=== PATIENT | male | born 1990 | race Caucasian/White ===

== ENCOUNTER 2023-02-14 08:59 | Emergency (ER) | payer MEDICAID, SELFPAY ==
[2023-02-14 09:04] VITALS: BP 151/111; PULSE 90; RESP 18; TEMP 36.8; O2SAT 99; BMI 29.9
--- NOTE | 2023-02-14 09:33 | ED_ITS ---
HPI - General Adult General Chief complaint: General Medical Stated complaint: bite willams ? hives Time Seen by Provider: 02/14/23 09:12 History of Present Illness HPI narrative: 32-year-old male with history of asthma, anxiety, depression presents with 1 week history of insect bites. Reports he went camping with his family 1 week ago and sustained two bites to the posterior calf. Reports that these bites were resolving without issue, but last night he noticed more bites all over his skin, that are painful 10/10, itchy, and draining fluid. Denies any other family members having similar bites. Endorses sweats, chills, headache, wooziness , nausea, vomiting, fatigue, shortness of breath, inability to taste. Denies using any medications for the current complaint. Onset (ago): day(s) Severity: severe Severity scale (1-10): 10 Pain Consistency: constant Associated symptoms: fever/chills, headaches, loss of appetite, nausea/vomiting, rash, shortness of breath and weakness Treatments prior to arrival: none Related Data Previous Rx's Medication Instructions Recorded diphenhydramine HCl 25 mg capsule 25 mg PO TID PRN itching #30 caps 02/14/23 (Benadryl) hydrocortisone 2.5 % topical 1 appl topical BID PRN itching 02/14/23 ointment #28.35 grams Allergies Allergy/AdvReac Type Severity Reaction Status Date / Time No Known Allergies Allergy Unverified 03/02/20 16:25 [facility] Social History Social History Advance Directives: No Advance Directives Information Provided: Yes Physical Exam ED Vital Signs: Vital Signs - 24 hr 02/14/23 09:04 Temperature 98.3 F Pulse Rate 90 Respiratory Rate 18 Blood Pressure 151/111 H Pulse Oximetry 99 Oxygen Delivery Method Room Air BMI result Body Mass Index 29.9 Const General: cooperative, no acute distress and alert Orientation/consciousness: patient oriented x3 Eyes Pupils: Equal, round and reactive pupils present EOM: EOMs intact bilaterally Direct Ophthalmoscopy: normal light reflex Neck Neck: Yes no meningeal signs Resp Effort & Inspection: normal respiratory effort and able to speak in complete sentences Auscultation: clear to auscultation bilaterally Cardio Rate: regular rate Skin Other: Scattered 2-5 mm papules with central punctum on arms, legs, back, chest, neck. Tender but not warm to palpation. Surrounding erythema about 1 cm for some bites. Some open and draining but no purulent fluid. Do not appear infected. No erythema migrans visualized. Neuro General: patient oriented x3 and no meningeal signs Cranial nerves: Yes Equal, round and reactive pupils present Medical Decision Making Medical Decision Making MDM Narrative: 32-year-old male presents with bug bites, that are painful, itchy. Reports systemic symptoms like sweats, chills, nausea, vomiting, shortness of breath. Physical exam reveals various, scatted, red papules that have been deroofed from itching and are oozing clear fluid. No ECM rash. Less likely ticke bourne illness due to multiple sites. Vital signs are within normal limits aside from BP 151/111. Patient appears in no acute distress and speaks in full sentences. Will discharge with prescription for Benadryl and topical hydrocortisone ointment. Informed patient that these medications will help with itchiness and rash should resolve. Differential Diagnosis Differential Diagnoses: The differential diagnosis associated with the presentation includes Mosquito bites, scabies, tick bite, Lyme, RMSF, COVID, influenza, upper respiratory virus External Record Review External record reviewed: Prior outpatient labs Tests considered The following testing was considered but not selected: considered lab workup and tick panel Prescription Management I considered prescription management with: Pain Medication and Antibiotic Critical Care Time Critical Care Time Critical Care Time: No Discharge Plan Discharge Clinical Impression: Bug bites Patient Disposition: Home, Self-Care Instructions: Insect Bite or Sting (ED) Additional Instructions: take the prescribed antihistaine as directed use the ointment as needed for itching use cool compresses or ice if itchy follow up with your doctor as needed If you develop new or worsening symptoms call 911 or come back to the ER for further evaluation. Prescriptions: New diphenhydramine HCl [Benadryl] 25 mg capsule 25 mg PO TID PRN (Reason: itching) Qty: 30 0RF hydrocortisone 2.5 % ointment 1 appl topical BID PRN (Reason: itching) Qty: 28.35 0RF Print Language: [place] Irish
== END 2023-02-14 10:21 | disposition home or self-care (01) ==
PROVIDERS: Emergency Provider Emergency Medicine
DX: L29.9 Pruritus, unspecified (principal); R11.2 Nausea with vomiting, unspecified; R06.02 Shortness of breath
CPT/HCPCS: 99282; 99283

== ENCOUNTER 2024-02-21 05:18 | Emergency (ER) | payer MEDICAID, SELFPAY ==
--- NOTE | ~2024-02-21 | CT_ITS ---
EXAMINATION: CT HEAD WITHOUT CONTRAST CLINICAL INFORMATION: Reason for Exam unresponsive, prob from OD COMPARISON: 05/22/2018 TECHNIQUE: Contiguous axial imaging was performed from the skull base to vertex without intravenous administration of contrast. This CT examination was performed using dose optimization techniques as appropriate, variously including the following: *Automated exposure control *Adjustment of mA and/or kV according to patient size (this includes techniques or standardized protocols for targeted exams where dose is matched to indication/reason for exam; i.e. extremities or head) *Use of iterative reconstruction technique DLP: 611 mGy-cm FINDINGS: There is no evidence of acute intracranial hemorrhage or territorial infarction. No abnormal mass-effect or midline shift is seen. Thompson to white matter differentiation is well preserved. No extra-axial fluid collections are identified. The ventricles are normal in size. There is no abnormal attenuation within the brain parenchyma. The osseous structures and soft tissues are normal. Mucous retention cysts of the bilateral maxillary sinuses. The mastoid air cells are well-aerated. CT/CT head/brain wo IV con IMPRESSION: No acute intracranial pathology. Electronically signed by: Jake Delong MD 02/21/2024 06:09 AM EDT
--- NOTE | 2024-02-21 05:20 | MHC.EDTECH ---
Patient BIBA for overdose. pt transferred to room 21 bed. patient came in to ER with t-shirt and underwear no other belongings. Patient changed into hospital gown and placed on air sampling and monitoring as well as SP02 and capnography to monitor patient who is still semi unresponsive. RN and MD bedside. Care on going
[2024-02-21 05:27] VITALS: BP 109/70; PULSE 70; O2SAT 98
[2024-02-21 05:39] VITALS: BP 111/72; PULSE 66; RESP 18; TEMP 36.5; O2SAT 96; BMI 29.6
--- NOTE | 2024-02-21 05:39 | ED_ITS ---
HPI - General Adult General Chief complaint: Overdose Stated complaint: od polysubstance, semiconscious, narcan given Time Seen by Provider: 02/21/24 05:35 History of Present Illness ED Provider: Ryan LOVELL narrative: The patient is a 33-year-old male who was brought to the hospital by ambulance. Apparently his girlfriend called an ambulance because he was unresponsive. Apparently the girlfriend heard the patient vomiting and then found him unresponsive. The patient is girlfriend says that the patient has been out drinking with friends. She has been home asleep. She had not heard him come in. The 1st thing she know he was vomiting in the toilet and seemed very out of it. She called 911. Paramedics arrived and administered 4 mg of naloxone with some increased level of alertness. Blood sugar was 104. Apparently by the time the patient got here the patient was once again quite unresponsive. The girlfriend says that the patient has used opioid pills in the past as far as she knows. She says they have only been together a few months and she does not know that much about his history. She does not think that he uses IV drugs. Related Data Previous Rx's ?Medication ?Instructions ?Recorded diphenhydramine HCl 25 mg capsule 25 mg PO TID PRN itching #30 caps 02/14/23 (Benadryl) hydrocortisone 2.5 % topical 1 appl topical BID PRN itching 02/14/23 ointment #28.35 grams Allergies Allergy/AdvReac Type Severity Reaction Status Date / Time No Known Allergies Allergy Unverified 02/21/24 05:42 Review of Systems 2 Review of Systems: Yes Unobtainable due to mental status [facility] Social History Social History Advance Directives: No Advance Directives Information Provided: Yes Physical Exam ED Vital Signs: Vital Signs - 24 hr 02/21/24 05:39 Temperature 97.7 F Pulse Rate 66 Respiratory Rate 18 Blood Pressure 111/72 Pulse Oximetry 96 Oxygen Delivery Method Room Air BMI result Body Mass Index 29.6 Const Other: The patient is a well-developed 33-year-old male who is unresponsive to verbal stimuli. He responds to painful stimuli by withdrawing. There were no signs of trauma. HENMT Other: Face is symmetrical. Airway is clear. Mucous membranes moist. Eyes Other: The patient had pinpoint pupils. Pupils became larger with painful stimuli. Extraocular motions seemed intact. Conjunctivae were clear. No scleral icterus. Neck Other: Neck is supple Resp Effort & Inspection: normal respiratory effort Auscultation: clear to auscultation bilaterally Cardio Rate: regular rate Rhythm: regular rhythm Heart sounds: S1 normal heart sound present and S2 normal heart sound present GI Other: The abdomen is flat and soft and not apparently tender. Skin Other: The skin is dry and unremarkable, no track willams seen. Neuro Other: The patient is somnolent and does not respond to verbal stimuli. The patient withdraws appropriately to painful stimuli. The patient has pinpoint pupils. Pupils dilate with painful stimuli. The face is symmetrical. The face grimaces appropriately with painful stimuli. Extrem Other: No signs of trauma to the extremities. No deformities. Medical Decision Making Medical Decision Making [facility] Narrative: The patient is a 33-year-old male who arrives by ambulance quite unresponsive. He had apparently been out drinking with friends. His girlfriend says she has been with him for a few months. She thinks that perhaps he uses oral opioids such as Percocet but she does not really know that much about his drug use history. He is somnolent here but maintaining his airway and his oxygen saturations. History is minimal because the girlfriend was not with the patient when he was out with friends drinking. Head CT is negative. ETOH level is 180. The patient's pinpoint pupils suggest that the patient probably used opioids in addition to alcohol. Labs other than his alcohol level are unremarkable. A head CT is negative. My impression is that the patient is likely sedated from use of opioids. Since he is maintaining his airway and oxygen saturations I do not see an indication for naloxone. We will observe the patient until he is more awake Lab Data 02/21/24 05:56 02/21/24 05:57 Labs: Lab Results 02/21/24 02/21/24 02/21/24 Range/Units 05:56 05:57 06:04 WBC 13.7 H (4.8-10.8) X10*3/uL RBC 5.14 (4.60-5.80) X10*6/uL Hgb 15.8 (14.0-18.0) g/dl Hct 46.5 (42.0-52.0) % MCV 90.5 (80.0-98.0) fL MCH 30.7 (27.0-33.0) pg MCHC 34.0 (31.0-36.0) g/dl RDW 13.4 (11.0-16.0) % Plt Count 306 (160-400) X10*3/uL MPV 10.0 (9.4-12.4) fL Immature Gran % (Auto) 0.4 (0.0-0.4) % Neut % (Auto) 75.7 H (45-73) % Lymph % (Auto) 18.5 L (20-40) % [place] % (Auto) 4.8 (2-11) % Eos % (Auto) 0.2 (0-4) % Baso % (Auto) 0.4 (0-2) % Lymph # (Auto) 2.5 (1.2-4.9) X10*3/uL [place] # (Auto) 0.7 (0.1-1.2) X10*3/uL Eos # (Auto) 0.0 (0.0-0.4) X10*3/uL Baso # (Auto) 0.1 (0.0-0.2) X10*3/uL Abs Immat Gran (auto) 0.05 H (0.00-0.03) X10*3/uL Absolute Neuts (auto) 10.4 H (2.0-8.3) x10*3/uL Absolute Nucleated RBC 0.000 (0.0-0.012) X10*3/uL Nucleated RBC % (auto) 0.0 (0.0-0.2) /100WBC VBG pH 7.37 (7.32-7.43) VBG pCO2 39 mmHg VBG pO2 121 mmHg VBG HCO3 22 (22-26) mmol/L VBG O2 Saturation 100.0 % VBG Base Excess -2.0 mmol/L Sodium 143 (135-145) mmol/L Potassium 3.2 L (3.3-5.1) mmol/L Chloride 105 (96-108) mmol/L Carbon Dioxide 23 (22-29) mmol/L Anion Gap 18 (12-20) BUN 12 (9-16) mg/dL Creatinine 0.86 (0.5-1.4) mg/dL Estim Creat Clear Calc 138.6 Estimated GFR > 60 Random Glucose 100 (60-115) mg/dL Calcium 9.5 (8.4-10.2) mg/dL Magnesium 2.4 (1.6-2.6) mg/dL Total Bilirubin 0.3 (0.0-1.0) mg/dL Direct Bilirubin 0.1 (0.0-0.5) mg/dL AST 17 (5-37) U/L ALT 14 (0-40) U/L Alkaline Phosphatase 74 (39-117) U/L Total Protein 8.3 H (6.5-8.0) g/dL Albumin 4.8 (3.5-5.0) g/dL Salicylates < 5.0 L (15-30) mg/dL Acetaminophen < 3 (<30) mcg/mL Ethyl Alcohol 180 mg/dL Independent Interpretation I performed an independent interpretation of an: EKG Interpretation: EKG at 05:46 shows normal sinus rhythm at 65 beats per minute. It is a normal EKG. Intervals normal. Discharge Plan Discharge Clinical Impression: Drug overdose Patient Disposition: Still a Patient Prescriptions: No Action diphenhydramine HCl [Benadryl] 25 mg capsule 25 mg PO TID PRN (Reason: itching) Qty: 30 0RF hydrocortisone 2.5 % ointment 1 appl topical BID PRN (Reason: itching) Qty: 28.35 0RF Print Language: Khmer
--- NOTE | 2024-02-21 05:39 | ECG_ITS ---
Test Reason : OVERDOSE Blood Pressure : / mmHG Vent. Rate : 065 BPM Atrial Rate : 065 BPM P-R Int : 132 ms QRS Dur : 094 ms QT Int : 430 ms P-R-T Axes : 010 029 004 degrees QTc Int : 447 ms Normal sinus rhythm Normal ECG When compared with ECG of 15-JUN-2012 09:58, No significant change was found Referred By: Kurtis Davis Electronically Signed By:MARY SILVERIO
--- NOTE | 2024-02-21 05:44 | PC.NURSE ---
pt to CT at this time.
--- NOTE | 2024-02-21 05:59 | PC.NURSE ---
while obtaining lab work pt woke up, cursing at this RN, then went back off to sleep. EKG and labs completed at this time.
[2024-02-21 06:02] LABS: Venous Blood Gas Refer to POC result
[2024-02-21 06:03] LABS: Basophils Absolute Auto 0.1 X10*3/uL (0.0-0.2); Basophils Percent Auto 0.4 % (0-2); Eosinophils Percent Auto 0.2 % (0-4); Hematocrit 46.5 % (42.0-52.0); Hemoglobin 15.8 g/dl (14.0-18.0); Imm Gran Abs Auto 0.05 X10*3/uL (0.00-0.03); Imm Gran Pct Auto 0.4 % (0.0-0.4); Lymphocytes Absolute Auto 2.5 X10*3/uL (1.2-4.9); Lymphocytes Percent Auto 18.5 % (20-40); MANUAL DIFF FLAG NO; Mean Corpuscular Hemoglobin 30.7 pg (27.0-33.0); Mean Corpuscular Volume 90.5 fL (80.0-98.0); Monocytes Absolute Auto 0.7 X10*3/uL (0.1-1.2); Monocytes Percent Auto 4.8 % (2-11); Neutrophils Absolute Auto 10.4 x10*3/uL (2.0-8.3); Neutrophils Percent Auto 75.7 % (45-73); Platelet Count 306 X10*3/uL (160-400); Red Blood Count 5.14 X10*6/uL (4.60-5.80); Red Cell Distribution Width 13.4 % (11.0-16.0); White Blood Count 13.7 X10*3/uL (4.8-10.8)
[2024-02-21 06:09] LABS: VBG HCO3 22 mmol/L (22-26); VBG pCO2 39 mmHg; VBG pH 7.37 (7.32-7.43); VBG pO2 121 mmHg
[2024-02-21 06:18] LABS: Alanine Aminotransferase 14 U/L (0-40); Albumin Level 4.8 g/dL (3.5-5.0); Alkaline Phosphatase 74 U/L (39-117); Anion Gap 18 (12-20); Aspartate Amino Transferase 17 U/L (5-37); Bilirubin Direct 0.1 mg/dL (0.0-0.5); Bilirubin Total 0.3 mg/dL (0.0-1.0); Blood Urea Nitrogen 12 mg/dL (9-16); Calcium 9.5 mg/dL (8.4-10.2); Carbon Dioxide 23 mmol/L (22-29); Chloride 105 mmol/L (96-108); Creatinine Clr Calc Pharmacy 138.6; Estimated Glomerular Filt Rate > 60; Ethanol 180 mg/dL; Glucose Random 100 mg/dL (60-115); Magnesium 2.4 mg/dL (1.6-2.6); Potassium 3.2 mmol/L (3.3-5.1); Sodium 143 mmol/L (135-145); Total Protein 8.3 g/dL (6.5-8.0)
[2024-02-21 06:21] LABS: Acetaminophen LAB < 3 mcg/mL (<30); Salicylate < 5.0 mg/dL (15-30)
--- NOTE | 2024-02-21 06:43 | MHC.EDTECH ---
Patient belongings in [facility] with security
[2024-02-21 08:08] LABS: Appearance Urine Clear; Color Urine Yellow; Glucose Urine UA Negative (Negative); Leukocyte Esterase Urine Negative (Negative); Nitrite Urine Negative (Negative); Specific Gravity - Urine >= 1.030 (1.005-1.025); Urine Blood Negative (Negative); Urine Ketones Negative (Negative); Urine Protein Trace mg/dL (Neg-Trace)
[2024-02-21 08:12] VITALS: BP 114/84; PULSE 75; RESP 18; TEMP 36.8; O2SAT 96
[2024-02-21 08:17] LABS: Amphetamine Screen Urine Not Detected (Not Detect); Barbiturates, Urine Not Detected (Not Detect); Benzodiazepines Screen Urine Not Detected (Not Detect); Buprenorphine Scr Not Detected (Not Detect); Cannabinoid Screen Urine POSITIVE (Not Detect); Cocaine Screen Urine POSITIVE (Not Detect); Fentanyl, urine Not Detected (Not Detect); Methadone Screen, Urine Not Detected (Not Detect); Opiate Screen Urine Not Detected (Not Detect); Oxycodone Screen Urine Not Detected (Not Detect); Phencyclidine Screen Urine POSITIVE (Not Detect)
[2024-02-21] MEDS: 0.9 % Sodium Chloride 1,000 ML 999 ML IV (08:33)
[2024-02-21] MEDS: Naloxone HCl Nasal TAKE HOME 4 MG SPRAY 8 MG NOSTRILALT (09:54)
[2024-02-21 09:59] VITALS: BP 114/84; PULSE 75; RESP 18; TEMP 36.8; O2SAT 96
== END 2024-02-21 09:59 | disposition home or self-care (01) ==
PROVIDERS: Emergency Provider Emergency Medicine
DX: T50.901A Poisoning by unspecified drugs, medicaments and biological substances, accidental (unintentional), initial encounter (principal); R40.4 Transient alteration of awareness; Y92.002 Bathroom of unspecified non-institutional (private) residence as the place of occurrence of the external cause
CPT/HCPCS: 36415; 70450; 80048; 80076; 80143; 80179; 80307; 81003; 82803; 83735; 85025; 93005; 99285

== ENCOUNTER 2024-04-17 16:36 | Emergency (ER) | payer MEDICAID, SELFPAY ==
[2024-04-17 16:38] VITALS: BP 153/96; PULSE 78; RESP 16; TEMP 36.4; O2SAT 98; BMI 31.3
--- NOTE | 2024-04-17 16:59 | ED_ITS ---
HPI - Male Genitourinary General Chief complaint: Urogenital-Male Stated complaint: std check Time Seen by Provider: 04/17/24 16:59 Source: patient and RN notes reviewed Mode of arrival: ambulatory Limitations: no limitations History of Present Illness ED Provider: Sandy Baca PA-C HPI Narrative: This is a 33-year-old male who presents emergency department with complaints of STI check. His significant other was just in the emergency room and was worked up for a Trichomonas infection. Patient is asymptomatic. Denies any fevers, chills, urinary symptoms, penile drainage. Denies known history of STIs. No other complaints or concerns at this time. MD Complaint: possible STD exposure Exacerbating factors: none Associated symptoms: Reports denies other symptoms Related Data Sexually active: Yes Previous Rx's ?Medication ?Instructions ?Recorded diphenhydramine HCl 25 mg capsule 25 mg PO TID PRN itching #30 caps 02/14/23 (Benadryl) hydrocortisone 2.5 % topical 1 appl topical BID PRN itching 02/14/23 ointment #28.35 grams doxycycline hyclate 100 mg capsule 100 mg PO BID 7 days #14 caps 04/17/24 Allergies Allergy/AdvReac Type Severity Reaction Status Date / Time No Known Allergies Allergy Verified 04/17/24 16:41 Review of Systems Review of Systems: Yes all other systems are reviewed and are negative PMFSH Social History Social History Advance Directives: No Advance Directives Information Provided: No Physical Exam Vital Signs: Vital Signs: Last Vital Signs Temp 97.6 F 04/17/24 17:22 Pulse 78 04/17/24 17:22 Resp 16 04/17/24 17:22 BP 153/96 H 04/17/24 17:22 Pulse Ox 98 04/17/24 17:22 O2 Del Method Room Air 04/17/24 17:22 BMI result Body Mass Index 31.3 Const: Other: General: Awake, alert, and oriented X3. No acute distress. HEENT: Normal inspection CVS: Normal heart rate and rhythm. Pulses normal. Respiratory: No respiratory distress Skin: Warm, dry, no rashes noted to exposed skin. Normal skin color. Normal skin turgor. Extremities: Normal to inspection Neuro: Oriented X 3. No motor deficit. No sensory deficit. Medications Administered Discontinued Medications Generic Name Dose Route Start Last Admin Trade Name Freq PRN Reason Stop Dose Admin Ceftriaxone Sodium 500 mg/ 0 mg 04/17/24 17:06 04/17/24 17:18 Lidocaine HCl 1 ml IM 04/17/24 17:07 1 kit ONCE ONE Administration Metronidazole 2,000 mg 04/17/24 17:06 04/17/24 17:17 Metronidazole 500 Mg Tablet PO 04/17/24 17:07 2,000 mg ONCE ONE Administration Medical Decision Making Medical Decision Making [facility] Narrative: This is a 33-year-old male who presents emergency department for STD check. Patient is positive for Trichomonas. Patient is asymptomatic. Patient hypertensive at 153/96, otherwise all other vital signs within normal limits. He has no chest pain or shortness for breath. No blurred vision, or headaches. Given positive Trichomonas contact, will treat with 2 g of Flagyl, also treated with ceftriaxone and doxycycline for coverage of gonorrhea and chlamydia. Given strict return precautions. He understands and agrees with plan. Patient stable for discharge Differential Diagnosis Differential Diagnoses: The differential diagnosis associated with the presentat ion includes STD exposure, Trichomonas, gonorrhea, chlamydia, STD prophylaxis treatment Lab Data Labs: Lab Results 04/17/24 Range/Units 17:16 Urine Color Yellow Urine Appearance Clear Urine pH 5.5 (5.0-9.0) Ur Specific [place] >= 1.030 H (1.005-1.025) Urine Protein Trace (Neg-Trace) mg/dL Urine Glucose (UA) Negative (Negative) mg/dL Urine Ketones Trace (Negative) mg/dL Urine Blood Negative (Negative) Urine Nitrite Negative (Negative) Ur Leukocyte Esterase Negative (Negative) Chlam trachomat DNA PCR NOT DETECTED (Not Detect.) N.gonorrhoeae DNA (PCR) NOT DETECTED (Not Detect.) Discharge Plan Discharge Clinical Impression: Possible exposure to STI Patient Disposition: Home, Self-Care Instructions: Postexposure Prophylaxis (ED) Additional Instructions: You were seen in the emergency department after known exposure to Trichomonas. This is a sexually transmitted infection. We sent out testing for gonorrhea, chlamydia, and Trichomonas. We will call you if any of these are positive. Please refrain from any sexual activity until you finish the antibiotics that I am prescribing you today. Doxycycline and ceftriaxone (injection you received today) treats for gonorrhea and chlamydia. 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 Please take this with food. I am also treating you with Flagyl. This treats for Trichomonas. Please refrain from all sexual intercourse until you complete full course of antibiotics. Please get tested for other sexually transmitted infections. You may do this at [facility]. [address], [place] [address] Friday Closed Friday Closed Friday 11?AM?7?PM Friday 11?AM?4:30?PM Friday 9?AM?5?PM Closed Friday 9?AM?5?PM [phone] Prescriptions: New doxycycline hyclate 100 mg capsule 100 mg PO BID 7 Days Qty: 14 0RF No Action diphenhydramine HCl [Benadryl] 25 mg capsule 25 mg PO TID PRN (Reason: itching) Qty: 30 0RF hydrocortisone 2.5 % ointment 1 appl topical BID PRN (Reason: itching) Qty: 28.35 0RF Interventions: ED Discharge Assessment Last Done: 04/17/24 17:22 Discharge Date/Time: 04/17/24 17:23 Print Language: Divehi
[2024-04-17] MEDS: metroNIDAZOLE 500 MG TABLET 2000 MG PO (17:17)
[2024-04-17] MEDS: cefTRIAXone sodium 500 MG, Lidocaine HCl 1 % MPF 1 ML IM (17:18)
[2024-04-17 17:22] VITALS: BP 153/96; PULSE 78; RESP 16; TEMP 36.4; O2SAT 98
[2024-04-17 17:28] LABS: Appearance Urine Clear; Color Urine Yellow; Glucose Urine UA Negative (Negative); Leukocyte Esterase Urine Negative (Negative); Nitrite Urine Negative (Negative); PH 5.5 (5.0-9.0); Specific Gravity - Urine >= 1.030 (1.005-1.025); Urine Blood Negative (Negative); Urine Ketones Trace mg/dL (Negative); Urine Protein Trace mg/dL (Neg-Trace)
[2024-04-18 03:36] LABS: CT PCR NOT DETECTED (Not Detect.); NG PCR NOT DETECTED (Not Detect.)
[2024-04-19 20:49] LABS: Trichomonas vag. RNA Ur Male NOT DETECTED (NOT DETECTED)
== END 2024-04-17 17:23 | disposition home or self-care (01) ==
PROVIDERS: Nurse Practitioner Family; Physician Assistant Medical; Emergency Provider Emergency Medicine
DX: Z20.2 Contact with and (suspected) exposure to infections with a predominantly sexual mode of transmission (principal); A59.9 Trichomoniasis, unspecified
CPT/HCPCS: 36415; 81003; 87491; 87591; 87661; 96372; 99284; J0696; J2003

== ENCOUNTER 2024-11-28 02:47 | Emergency (ER) | payer MEDICAID, SELFPAY ==
[2024-11-28] VITALS (7 sets, daily range): BP systolic 106–126; BP diastolic 64–89; PULSE 60–83; RESP 13–15; TEMP 36.6–37.1; O2SAT 95–100; BMI 27.3
--- NOTE | ~2024-11-28 | CT_ITS ---
CLINICAL HISTORY: unresponsive, etoh OD? CT head without contrast Comparison: None Findings: No intra-axial mass, midline shift, hydrocephalus, or acute hemorrhage. No significant atrophy-like change or white matter disease. There is no sinus or mastoid fluid. The orbits are unremarkable. No skull fracture. IMPRESSION: 1. No acute intracranial findings. This document has been electronically signed by: Benjamin Carpenter MD on 11/28/2024 06:22:29
--- NOTE | 2024-11-28 03:09 | ECG_ITS ---
Test Reason : unresponsive Blood Pressure : */* mmHG Vent. Rate : 67 BPM Atrial Rate : 67 BPM P-R Int : 124 ms QRS Dur : 100 ms QT Int : 396 ms P-R-T Axes : 9 30 0 degrees QTcB Int : 418 ms Normal sinus rhythm Nonspecific T wave abnormality Abnormal ECG When compared with ECG of 21-Feb-2024 05:46, Nonspecific T wave abnormality now evident in Lateral leads Referred By: Kelly Carroll Electronically Signed By: NOMI ABRAHAM MD
--- NOTE | 2024-11-28 03:20 | ED.GENADULT ---
HPI - General Adult General Chief complaint: ETOH/Substance Use Stated complaint: ETOH, THC, N/V, poor responsiveness Time Seen by Provider: 11/28/24 03:07 Source: EMS Mode of arrival: EMS Limitations: other History of Present Illness ED Provider: Dr. Kelly Carroll HPI narrative: Patient comes to the emergency room via ambulance. According to EMS, police department found the patient vomiting on the road, patient reported to them that he had been drinking unknown amount of alcohol and also unknown amount of THC. On arrival, patient is sleeping, barely arousable to painful stimuli. Related Data Previous Rx's ?Medication ?Instructions ?Recorded diphenhydramine HCl 25 mg capsule 25 mg PO TID PRN itching #30 caps 02/14/23 (Benadryl) hydrocortisone 2.5 % topical 1 appl topical BID PRN itching 02/14/23 ointment #28.35 grams doxycycline hyclate 100 mg capsule 100 mg PO BID 7 days #14 caps 04/17/24 Allergies Allergy/AdvReac Type Severity Reaction Status Date / Time No Known Allergies Allergy Verified 11/28/24 02:56 Review of Systems Review of Systems: Yes Other Physical Exam ED Vital Signs: Vital Signs - 24 hr 11/28/24 02:55 11/28/24 03:16 11/28/24 04:07 Temperature 98.7 F 98.7 F Pulse Rate 70 70 66 Respiratory Rate 14 14 13 Blood Pressure 116/69 116/69 106/64 Pulse Oximetry 95 95 100 Oxygen Delivery Method Room Air Room Air Room Air 11/28/24 04:50 11/28/24 05:34 Temperature Pulse Rate 66 60 Respiratory Rate 15 15 Blood Pressure 108/64 116/81 Pulse Oximetry 97 98 Oxygen Delivery Method Room Air Room Air BMI result Body Mass Index 27.3 Const Other: Appearance: Somnolent, difficult to arouse with painful stimuli Eyes: Pinpoint pupils, Pupils equal, round and reactive to light. ENT: Pharynx normal. Neck: Normal inspection. Neck supple. No lymph nodes noted. No crepitus CVS: Normal heart rate and rhythm. Pulses normal. Normal S1 and S2 Respiratory: No respiratory distress. Breath sounds normal. No Wheezing. No rales Abdomen: Soft and nontender. No rigidity. No distention. Skin: Skin warm and dry. Normal skin color. Normal skin turgor. Extremities: No lower extremity edema. No Lacerations. No Rash Neuro: Unable to participate in cranial nerve assessment Psych: Unresponsive Course Course Course Narrative: All of patient's labs and vitals are stable. Head CT pending Labs pending Medications Administered Generic Name Dose Route Start Last Admin Trade Name Brook PRN Reason Stop Dose Admin Potassium Chloride 10 meq in 100 mls @ 100 mls/hr 11/28/24 04:45 11/28/24 05:50 Potassium Chloride/H20 IV 11/28/24 08:44 100 mls/hr Q1H KAYLAH Administration Medical Decision Making Medical Decision Making [facility] Narrative: My interpretation of labs: No significant abnormality in patient's hematology, chemistry shows a potassium level of 2.6, normal LFTs, ETOH 79. Patient has not provided a urine analysis Head CT pending At this time, patient is too somnolent for any p.o. medications. Patient is receiving her left hand IV potassium. However, when patient wakes up, he will likely need p.o. potassium. Head CT does not show any acute abnormality At this time, 06:30, patient awake, alert and oriented, patient states that he remembers being in a bar with his friends and they were all smoking marijuana that they bought off the street. It was possibly laced with fentanyl? Patient denies SI or HI. Patient denies any falls. No that patient is awake, patient will be given p.o. potassium. Patient already received 20 mEq of IV potassium while he was sleeping. Patient was given 60 mEq of p.o. potassium. That patient is awake and alert, coherent ambulatory, patient may be discharged Differential Diagnosis Differential Diagnoses: The differential diagnosis associated with the presentation includes (Accidental drug overdose, polysubstance abuse, alcohol intoxication) Admission/Observation Consideration of admission/observation: Escalation of care including admission/observation considered (Given patient's initial presentation, observation was considered) Lab Data [facility] Lab Attestation statement: I reviewed the patient's lab results. 11/28/24 03:16 11/28/24 03:16 Labs: Lab Results 11/28/24 Range/Units 03:16 WBC 9.1 (4.8-10.8) X10*3/uL RBC 4.83 (4.60-5.80) X10*6/uL Hgb 14.6 (14.0-18.0) g/dl Hct 43.4 (42.0-52.0) % MCV 89.9 (80.0-98.0) fL MCH 30.2 (27.0-33.0) pg MCHC 33.6 (31.0-36.0) g/dl RDW 12.9 (11.0-16.0) % Plt Count 242 (160-400) X10*3/uL MPV 10.4 (9.4-12.4) fL Immature Gran % (Auto) 0.4 (0.0-0.4) % Neut % (Auto) 62.0 (45-73) % Lymph % (Auto) 30.7 (20-40) % [place] % (Auto) 5.4 (2-11) % Eos % (Auto) 1.1 (0-4) % Baso % (Auto) 0.4 (0-2) % Lymph # (Auto) 2.8 (1.2-4.9) X10*3/uL [place] # (Auto) 0.5 (0.1-1.2) X10*3/uL Eos # (Auto) 0.1 (0.0-0.4) X10*3/uL Baso # (Auto) 0.0 (0.0-0.2) X10*3/uL Abs Immat Gran (auto) 0.04 H (0.00-0.03) X10*3/uL Absolute Neuts (auto) 5.6 (2.0-8.3) x10*3/uL Absolute Nucleated RBC 0.000 (0.0-0.012) X10*3/uL Nucleated RBC % (auto) 0.0 (0.0-0.2) /100WBC Sodium 140 (135-145) mmol/L Potassium 2.6 L* (3.3-5.1) mmol/L Chloride 103 (96-108) mmol/L Carbon Dioxide 24 (22-29) mmol/L Anion Gap 16 (12-20) BUN 12 (9-16) mg/dL Creatinine 0.81 (0.5-1.4) mg/dL Estim Creat Clear Calc 130.9 Estimated GFR > 60 Random Glucose 115 (60-115) mg/dL Calcium 9.3 (8.4-10.2) mg/dL Total Bilirubin 0.2 (0.0-1.0) mg/dL Direct Bilirubin < 0.2 (0.0-0.5) mg/dL AST 24 (5-37) U/L ALT 21 (0-40) U/L Alkaline Phosphatase 69 (39-117) U/L Total Protein 7.2 (6.5-8.0) g/dL Albumin 4.5 (3.5-5.0) g/dL Ethyl Alcohol 79 mg/dL Independent Interpretation I performed an independent interpretation of an: CT Scan Radiology Impression Discussion of test interpretation with radiology: I have reviewed the radiologist's reading. Radiologist Impression: No intra-axial mass, midline shift, hydrocephalus, or acute hemorrhage. No significant atrophy-like change or white matter disease. There is no sinus or mastoid fluid. The orbits are unremarkable. No skull fracture. Critical Care Time Critical Care Time Critical Care Time: Yes Total Critical Care Time: 60 Attestation: I have personally provided critical care time. Time includes review of lab data, radiology results, discussion with consultants, and monitoring for potential decompensation. Intervention performed as documented. Discharge Plan Discharge Clinical Impression: Accidental overdose, Hypokalemia Patient Disposition: Home, Self-Care Instructions: Adult Overdose (ED), Potassium Content of Foods List (ED), Hypokalemia (ED) Additional Instructions: Please follow-up with your primary care physician tomorrow. If you have any worsening or new symptoms, please return to the emergency room or call 911 Prescriptions: No Action doxycycline hyclate 100 mg capsule 100 mg PO BID 7 Days Qty: 14 0RF diphenhydramine HCl [Benadryl] 25 mg capsule 25 mg PO TID PRN (Reason: itching) Qty: 30 0RF hydrocortisone 2.5 % ointment 1 appl topical BID PRN (Reason: itching) Qty: 28.35 0RF Print Language: Frisian
[2024-11-28 03:21] LABS: MANUAL DIFF FLAG NO
[2024-11-28 03:22] LABS: Basophils Percent Auto 0.4 % (0-2); Eosinophils Absolute Auto 0.1 X10*3/uL (0.0-0.4); Eosinophils Percent Auto 1.1 % (0-4); Hematocrit 43.4 % (42.0-52.0); Hemoglobin 14.6 g/dl (14.0-18.0); Imm Gran Abs Auto 0.04 X10*3/uL (0.00-0.03); Imm Gran Pct Auto 0.4 % (0.0-0.4); Lymphocytes Absolute Auto 2.8 X10*3/uL (1.2-4.9); Lymphocytes Percent Auto 30.7 % (20-40); Mean Corpuscular HGB Conc 33.6 g/dl (31.0-36.0); Mean Corpuscular Hemoglobin 30.2 pg (27.0-33.0); Mean Corpuscular Volume 89.9 fL (80.0-98.0); Mean Platelet Volume 10.4 fL (9.4-12.4); Monocytes Absolute Auto 0.5 X10*3/uL (0.1-1.2); Monocytes Percent Auto 5.4 % (2-11); Neutrophils Absolute Auto 5.6 x10*3/uL (2.0-8.3); Platelet Count 242 X10*3/uL (160-400); Red Blood Count 4.83 X10*6/uL (4.60-5.80); Red Cell Distribution Width 12.9 % (11.0-16.0); White Blood Count 9.1 X10*3/uL (4.8-10.8)
[2024-11-28 04:06] LABS: Alanine Aminotransferase 21 U/L (0-40); Albumin Level 4.5 g/dL (3.5-5.0); Alkaline Phosphatase 69 U/L (39-117); Anion Gap 16 (12-20); Aspartate Amino Transferase 24 U/L (5-37); Bilirubin Direct < 0.2 mg/dL (0.0-0.5); Bilirubin Total 0.2 mg/dL (0.0-1.0); Blood Urea Nitrogen 12 mg/dL (9-16); Calcium 9.3 mg/dL (8.4-10.2); Carbon Dioxide 24 mmol/L (22-29); Chloride 103 mmol/L (96-108); Creatinine Clr Calc Pharmacy 130.9; Estimated Glomerular Filt Rate > 60; Ethanol 79 mg/dL; Glucose Random 115 mg/dL (60-115); Potassium 2.6 mmol/L (3.3-5.1); Sodium 140 mmol/L (135-145); Total Protein 7.2 g/dL (6.5-8.0)
[2024-11-28] MEDS: Potassium Chloride/H20 10 MEQ/100 ML PIGGYBACK 100 MEQ IV ×2 (04:51→05:50)
[2024-11-28] MEDS: Potassium Chloride ER 20 MEQ TAB.ER.PRT 60 MEQ PO (06:57)
== END 2024-11-28 07:30 | disposition home or self-care (01) ==
LOC: HO.ED 07:08
PROVIDERS: Emergency Provider Emergency Medicine
DX: T50.901A Poisoning by unspecified drugs, medicaments and biological substances, accidental (unintentional), initial encounter (principal); R40.0 Somnolence; Y92.414 Local residential or business street as the place of occurrence of the external cause; E87.6 Hypokalemia; F10.90 Alcohol use, unspecified, uncomplicated; Y90.3 Blood alcohol level of 60-79 mg/100 ml
CPT/HCPCS: 36415; 70450; 80048; 80076; 80307; 85025; 93005; 99284; J3480

== ENCOUNTER → 2024-11-28 03:09 | Outpatient (BNV) | payer MEDICAID, SELFPAY | PROVIDERS: Emergency Provider Emergency Medicine; Visit Provider Internal Medicine Cardiovascular Disease | DX: R94.31 Abnormal electrocardiogram [ECG] [EKG] (principal); R40.20 Unspecified coma | CPT/HCPCS: 93010 ==

== ENCOUNTER → 2024-11-28 03:16 | Outpatient (BNV) | payer MEDICAID, SELFPAY | PROVIDERS: Emergency Provider Emergency Medicine; Visit Provider Specialist | DX: R40.1 Stupor (principal) | CPT/HCPCS: 70450 ==